=== PATIENT | male | born 1960 | race Caucasian/White ===

== ENCOUNTER → 2017-06-04 | Outpatient (CLI) | payer OTHER ==
[~2017-06-04] MED LIST: ADVAIR 2501 DISK W/D PO; ALBUTEROL17 GM INH; ATORVASTATIN CA10 MG PO; BAYER ASPIRIN325 M1; BENADRYL PO; COMBIVENT U/D3 M1 NEB; DELTASONE20 MG PO; DILAUDID4 MG PO; DILAUDID8 MG PO; DIOVAN PO; HYDRALAZINE HCL50 MG PO; LEVAQUIN PO; LEVOFLOXACIN500 MG PO; MEDROL DOSEPAK4 MG PO; PHENERGAN PO; PREDNISONE10 MG PO; PROMETHAZINE D118 ML PO; PROTONIX PO; ROBITUSSIN A-C S5 ML PO; SPIRIVA18 MCG INH; SYMBICORT 160/4.6 GM INH; TAMIFLU75 M1 PO; TEGRETOL PO; TEGRETOL-XR200 MG PO; XANAX1 MG PO
--- NOTE | ~2017-06-04 | CT138 ---
[facility] A Service of [facility] RADIOLOGY TEXT RESULTS PATIENT: MARLON BLACK LOCATION: [facility] : 56 UNIT #: [id number] AGE: [address]: HERVE KNAPP MD (INT MED) SEX: M ORDER DR: [id number] [facility] [address] [place] [address] [place], [place] [address] [id number] O MR#: [id number] [facility] #: [id number] NAME: MARLON BLACK : 1960 SEX: M STUDY DATE/TIME: 06/04/2017 13:42 UNIT: [facility] ROOM: STUDY DESCRIPTION: CT Lung screening initial Attending Physician: Herve Knapp M.D. Referring Physician: Herve Knapp M.D. Ordering Physician: Herve Knapp M.D. Primary Care Physician: Herve Knapp M.D. MEDICAL IMAGING REPORT This report is preliminary unless electronic signature is present EXAM CT of the chest without contrast lung cancer screening. INDICATIONS 40-pack/year total smoking history. Current smoker. TECHNIQUE CT chest performed without contrast using low-dose lung cancer screening protocol. CT dose index 2.6 mGy. Coronal and sagittal reformatted images were obtained. This CT exam was performed with one or more of the following radiation dose reduction techniques: automatic exposure control, adjustment of mA and/or kV according to patient size, and iterative reconstruction. COMPARISON Comparison is made with 12/15/2015. FINDINGS Emphysema. Stable micronodule in the right upper lobe on image 81. Stable tiny nodule in the right middle lobe on image 121. No new nodules. Patient has a persistent left-sided SVC. No lymphadenopathy. Coronary artery calcification. Stable thickening of the mid and distal esophagus. No pleural effusion. Limited imaging of the upper abdomen is unremarkable. Bone windows are unremarkable. IMPRESSION Stable tiny nodules in the right lung. ACR Lung-RADS category: 2 Recommend followup annual low-dose lung cancer screening chest CT in 1 year. [facility] A Service [facility] RADIOLOGY TEXT RESULTS PATIENT: MARLON BLCAK LOCATION: [facility] : 56 UNIT #: [id number] AGE: [address]: HERVE KNAPP MD (INT MED) SEX: M ORDER DR: Dictated by... Waldemar Mckeon M.D. THIS IS AN ELECTRONICALLY VERIFIED REPORT Waldemar Mckeon M.D. at 06/05/2017 5:29 PM RANDY/shantanu TD: 06/05/2017 11:37 JOB #: [id number] MEDICAL IMAGING REPORT Page 1 of 1 COPY
== END | disposition home or self-care (01) ==
LOC: CCAT 13:10
DX: F17.210 Nicotine dependence, cigarettes, uncomplicated (principal)
CPT/HCPCS: G0297

== ENCOUNTER → 2017-06-20 | Outpatient (CLI) | payer OTHER ==
--- NOTE | ~2017-06-20 | US37 ---
[facility] A Service of [facility] RADIOLOGY TEXT RESULTS PATIENT: MARLON BLACK LOCATION: [facility] : 56 UNIT #: [id number] AGE: [address]: Veronica Keita MD SEX: M ORDER DR: [id number] [facility] [address] [place], [place] [address] [id number] O MR#: [id number] Acc #: [id number] NAME: MARLON BLACK : 1960 SEX: M STUDY DATE/TIME: 06/20/2017 14:16 UNIT: [facility] ROOM: STUDY DESCRIPTION: US Carotid W/Doppler Bilateral Attending Physician: Rosa Keita M.D. Referring Physician: Rosa Keita M.D. Ordering Physician: Rosa Keita M.D. Primary Care Physician: Sarkis Knapp M.D. MEDICAL IMAGING REPORT This report is preliminary unless electronic signature is present EXAM Bilateral carotid duplex HISTORY Carotid stenosis, preop cardiovascular FINDINGS There is patent flow seen in the right common carotid, and external carotid. The right ICA appears occluded. There is heavy atherosclerosis noted throughout the right common carotid artery which appears heterogeneous and irregular. This extends into the carotid bifurcation and external carotid artery. The right internal carotid artery appears occluded. Though some velocities are obtained. The right common carotid artery peak velocity is 62 cm/second. The right internal carotid artery peak systolic/end diastolic velocities are: Proximal 26/9 cm/second, mid 49/12 cm/second, distal 28/7 cm/second. The right external carotid artery has a peak velocity of 206 cm/second and vertebral artery 48 cm/second. The right ICA:CCA is 0.79. There is patent flow seen throughout the left common carotid, internal carotid and external carotid arteries. There is diffuse, regular appearing plaque seen in the left common carotid artery. It extends into the left carotid bifurcation, where it appears a bit more heterogeneous, and extends into the internal and external carotid arteries. The left common carotid artery peak velocity is 126 cm/second. The left internal carotid artery peak systolic/end diastolic velocities are: Proximal 146/15 cm/second, mid 130/47 cm/second, distal 132/45 cm/second. The left external carotid artery peak velocity is 247 cm/second and vertebral artery 67 cm/second. The left ICA:CCA is 1.15. IMPRESSION 1. This is an abnormal study. The right internal carotid artery STS. [facility] A Service of [facility] RADIOLOGY TEXT RESULTS PATIENT: MARLON BLACK LOCATION: [facility] : 56 UNIT #: [id number] AGE: [address]: Veronica Keita MD SEX: M ORDER DR: appears to have occluded versus trickle flow. This finding was previously noted in the 05/2016 study. 2. The left carotid artery has moderate atherosclerosis, consistent with 50-69% stenosis. 3. Vertebral flow is antegrade bilaterally. 4. Significantly decreased right common carotid artery velocities in comparison, may suggest more proximal stenosis. Dictated by... New Esposito M.D. THIS IS AN ELECTRONICALLY VERIFIED REPORT New Esposito M.D. at 07/01/2017 9:33 AM AC/jorge TD: 06/20/2017 23:15 JOB #: [id number] MEDICAL IMAGING REPORT Page 1 of 1 COPY
== END | disposition home or self-care (01) ==
LOC: CNIV 06-14 15:30
DX: Z01.810 Encounter for preprocedural cardiovascular examination (principal); I65.22 Occlusion and stenosis of left carotid artery; R93.8 Abnormal findings on diagnostic imaging of other specified body structures
CPT/HCPCS: 93880